=== PATIENT | male | born 1965 | race Caucasian/White ===

== ENCOUNTER 2019-09-01 16:41 | Emergency (ER) | payer SELFPAY ==
[2019-09-01] VITALS (7 sets, daily range): BP systolic 109–155; BP diastolic 86–96; PULSE 72–97; RESP 15–18; TEMP 36.4; O2SAT 95–100; BMI 26.6
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
[2019-09-01 17:26] LABS: Basophils % 0.6 %; Eosinophils # 0.4 10^3/uL (0.0-0.8); Eosinophils % 6.3 %; Hematocrit 39.1 % (42.0-52.0); Lymphocytes # 1.5 10^3/uL (0.8-4.8); Lymphocytes % 23.2 %; Mean Corpuscular HGB Conc 33.2 g/dL (30.0-36.0); Mean Corpuscular Hemoglobin 30.9 pg (28.0-34.0); Mean Corpuscular Volume 92.9 fL (80-94); Mean Platelet Volume 9.8 fL (7.4-10.4); Monocytes # 0.7 10^3/uL (0.2-0.9); Monocytes % 10.2 %; Neutrophils # 3.9 10^3/uL (1.8-7.7); Neutrophils % 59.5 %; Nucleated Red Blood Cells % 0 %; Platelet Count 177 10^3/cmm (130-400); Red Blood Count 4.21 10^6/uL (4.1-5.3); Red Cell Distribution Width 13.2 % (12.1-15.1); White Blood Count 6.6 10^3/uL (4.0-10.0)
[2019-09-01 17:40] LABS: Alanine Aminotransferase 23 U/L (0-41); Albumin Level 4.3 g/dL (3.5-5.2); Alkaline Phosphatase 54 IU/L (40-130); Anion Gap 13.7 (5-19); Aspartate Amino Transferase 33 U/L (0-40); Blood Urea Nitrogen 12 mg/dL (6-20); Calcium 8.7 mg/dL (8.5-10.5); Carbon Dioxide 23 mmol/L (22-29); Chloride 105 mmol/L (98-107); Globulin 2.3 g/dL (1.3-4.6); Glomerular Filtration Rate 101.1 mL/min (90-130); Glucose 100 mg/dL (65-115); Osmolality Calculated 282 mOsm/kg (285-295); Potassium 3.7 mmol/L (3.5-5.1); Sodium 138 mmol/L (136-145); Total Bilirubin 0.3 mg/dL (0.15-1.2); Total Protein 6.6 g/dL (6.6-8.7)
--- NOTE | 2019-09-01 20:31 | PC.NURSE ---
contacted patients girlfriend on contact sheet; she is making arrangements to pick patient up
[2019-09-01] MEDS: oxyCODONE-APAP 5-325 mg Tablet 2 TAB PO (23:58)
[2019-09-02 00:03] VITALS: BP 142/80; PULSE 87; RESP 17; O2SAT 99
--- NOTE | 2019-09-04 11:23 | DCPLANNER ---
office services manager had message to schedule a follow up appointment for patient with ortho. office services manager called the ortho clinic, spoke with Felisa, gave clinic patients information. office services manager was told that patients information would be printed and reviewed. Clinic will call patient with appointment information.
--- NOTE | 2019-09-06 10:56 | DCPLANNER ---
Pat from ortho called employment evaluator/case manager stating that they were unable to reach patient concerning appointment information. jail manager called [phone] and was unable to reach patient, and unable to leave a voicemail due to voicemail box full and unable to leave a voicemail. No appointment has been scheduled at this time, due to not being able to reach patient.
== END 2019-09-01 23:50 | disposition home or self-care (01) ==
PROVIDERS: Family Medicine; Emergency Provider Emergency Medicine
DX: S52.515A Nondisplaced fracture of left radial styloid process, initial encounter for closed fracture (principal); V89.2XXA Person injured in unspecified motor-vehicle accident, traffic, initial encounter; I25.10 Atherosclerotic heart disease of native coronary artery without angina pectoris; I10 Essential (primary) hypertension
CPT/HCPCS: 12345; 29125; 36415; 71045; 72040; 73090; 80053; 85025; 99283